=== PATIENT | male | born 1990 | race Caucasian/White ===

== ENCOUNTER 2018-12-08 12:45 | Inpatient (IN) | payer BC ==
[~2018-12-08] VITALS: Ht 185.4 cm; Wt 55.3 kg
[2018-12-08 13:12] VITALS: Ht 185.4 cm; Wt 55.3 kg
[2018-12-08 15:16] LABS: BASOPHIL % 0.4 % (0-2); PLATELET COUNT 240 x10^3mcL (130-400)
[2018-12-08 15:17] LABS: CALCIUM 9.5 mg/dL (8.5-10.1); CARBON DIOXIDE 28.1 mmol/L (21-32); CHLORIDE SERUM 102 mmol/L (98-107); CREATININE SERUM 1.1 mg/dL (0.7-1.3); GFR1 > 60 mL/min; GLUCOSE SERUM 99 mg/dL (74-106); POTASSIUM SERUM 3.5 mmol/L (3.5-5.1); SODIUM SERUM 142 mmol/L (136-145)
[2018-12-08 15:23] LABS: ALBUMIN 4.7 g/dL (3.4-5.0); ALKALINE PHOSPHATASE 54 U/L (46-116); ALT/SGPT 15 U/L (16-63); AST/SGOT 16 U/L (15-37); BILIRUBIN TOTAL 4.02 mg/dL (0.20-1.00); LIPASE 125 IU/L (73-393); TOTAL PROTEIN, SERUM 8.1 g/dL (6.4-8.2)
[2018-12-08 18:58] VITALS: BP 112/61
[2018-12-09 04:57] VITALS: BP 105/57
[2018-12-09 06:32] LABS: BASOPHIL % 0.2 % (0-2); PLATELET COUNT 163 x10^3mcL (130-400); RED CELL DISTRIBUTION WIDTH 12.6 % (11.5-14.5)
[2018-12-09 06:44] LABS: CALCIUM 8.7 mg/dL (8.5-10.1); CARBON DIOXIDE 26.1 mmol/L (21-32); CHLORIDE SERUM 103 mmol/L (98-107); GFR1 > 60 mL/min; GLUCOSE SERUM 112 mg/dL (74-106); MAGNESIUM 1.7 mg/dL (1.8-2.4); PHOSPHOROUS 4.1 mg/dL (2.5-4.9); POTASSIUM SERUM 4.2 mmol/L (3.5-5.1); SODIUM SERUM 140 mmol/L (136-145)
[2018-12-09 07:20] VITALS: BP 119/60
[2018-12-09 11:04] LABS: AMPHETAMINE QUAL UR NONE DETECTED (See below)
[2018-12-09 11:30] LABS: microscopic required? YES; urine erythrocyte 2+ (NEGATIVE)
[2018-12-09 16:24] VITALS: BP 119/60
[2018-12-09 16:52] VITALS: BP 105/67
== END 2018-12-09 17:27 | disposition home or self-care (01) | DRG 343 ==
LOC: ED 12:45 → MU 16:25
PROVIDERS: Emergency Medicine; Surgery; ADMIT General Practice
PROC: 0DTJ4ZZ Resection of Appendix, Percutaneous Endoscopic Approach (ICD-10-PCS; principal; 2018-12-08 17:00)
DX: K35.30 Acute appendicitis with localized peritonitis, without perforation or gangrene (principal); Z60.2 Problems related to living alone
CPT/HCPCS: G0378; J1170; J2250; J2270; J2405; J2543; J3010; J3490; J7030